=== PATIENT | male | born 1950 | race Hispanic/Latino ===

== ENCOUNTER → 2017-12-30 | Outpatient (CLI) | payer OTHER, MEDICARE ==
[~2017-12-30] MED LIST: ACET-2743 PO; AEC81 PO; ALLO100T PO; ALPR0.255 PO; AMIO400T4 PO; DIGO125T87 PO; FENO48TA4 PO; LISI10TA7 PO; METO100T14 PO; PARO-37 PO; PRAV40TA3 PO; RIVA20TA PO; SAXA5TAB PO
== END ==
LOC: OIH 11:37
PROVIDERS: ATTEND Family Medicine
DX: J02.9 Acute pharyngitis, unspecified (principal)
CPT/HCPCS: 71046

== ENCOUNTER → 2020-04-12 | Outpatient (CLI) | payer OTHER, MEDICARE ==
[~2020-04-12] MED LIST changes: -AMIO400T4 PO; +ATOR40TA71 PO; +CARV12.511 PO; +DIGO125T17 PO; +DIGO125T71 PO; -DIGO125T87 PO; +DRON400T2 PO; -FENO48TA4 PO; +FENO48TA9 PO; +GLIP5TAB11 PO; +LEVO75 PO; +METF-446 PO; +OSEL75 PO; -PRAV40TA3 PO; -RIVA20TA PO; -SAXA5TAB PO; +WARF5TAB PO; +WARF7.5T23 PO
== END | disposition home or self-care (01) ==
LOC: RAH 08:46
PROVIDERS: ATTEND Family Medicine
DX: K76.0 Fatty (change of) liver, not elsewhere classified (principal); I70.0 Atherosclerosis of aorta; N28.1 Cyst of kidney, acquired; R53.1 Weakness
CPT/HCPCS: 71046; 76700

== ENCOUNTER → 2020-06-02 | Outpatient (CLI) | payer OTHER, MEDICARE | END | disposition home or self-care (01) | LOC: RAH 08:39 | PROVIDERS: ATTEND Family Medicine | DX: R63.4 Abnormal weight loss (principal); I70.0 Atherosclerosis of aorta; M47.814 Spondylosis without myelopathy or radiculopathy, thoracic region; Z95.0 Presence of cardiac pacemaker | CPT/HCPCS: 71046 ==

== ENCOUNTER 2021-10-09 08:19 | Emergency (ER) | payer OTHER, MEDICARE ==
[~2021-10-09 08:19] MED LIST changes: -DRON400T2 PO; +DRON400T7 PO; +FENO48TA10 PO; -FENO48TA9 PO; +LISI10TA24 PO; -LISI10TA7 PO
[2021-10-09 08:30] LABS: BASOPHILS % (AUTO) 0.4 % (0.0-5.0); EOSINOPHILS % (AUTO) 0.1 % (0.0-8.0); HEMATOCRIT 45.6 % (42-54); LYMPHOCYTES % (AUTO) 7.1 % (21.0-51.0); MEAN CORPUSCULAR HEMOGLOBIN 28.3 pg (27.0-33.0); MEAN CORPUSCULAR HGB CONC 31.1 g/dL (32.0-36.0); MEAN CORPUSCULAR VOLUME 90.8 fL (79-99); MONOCYTES % (AUTO) 5.8 % (3.0-13.0); NEUTROPHILS % (AUTO) 85.4 % (40.0-77.0); PLATELET COUNT (AUTO) 216 K/uL (130-400); RED BLOOD CELL COUNT(AUTO) 5.02 MIL/uL (4.50-6.20); WHITE BLOOD COUNT (AUTO) 19.1 K/uL (4.8-10.8)
[2021-10-09 08:50] LABS: CREATININE 1.4 mg/dL (0.5-1.5); POTASSIUM 4.9 mmol/L (3.5-5.1)
[2021-10-09 08:52] LABS: INR 1.81 (0.85-1.15); PROTHROMBIN TIME 18.7 SEC (9.6-11.6)
[2021-10-09 08:53] LABS: PARTIAL THROMBOPLASTIN TIME 28.6 SEC (26.3-35.5)
[2021-10-09 08:56] LABS: ALBUMIN 3.9 g/dL (3.5-5.0); BILIRUBIN,TOTAL 2.3 mg/dL (0.2-1.0); DIGOXIN 0.57 ng/mL (0.50-2.00); TOTAL PROTEIN, SERUM 7.7 g/dL (6.0-8.3)
[2021-10-09] MEDS ORDERED: 0.9%NACL 1000ML 1,000 ML IV SCH (09:00)
[2021-10-09] MEDS ORDERED: IOHEXOL-350 75 ML VIAL IV ONE (09:20)
[2021-10-09] MEDS ORDERED: IOHEXOL-350 50ML VIAL IV ONE (09:21)
[2021-10-09 10:30] VITALS: BP 119/73
[2021-10-09] MEDS ORDERED: ASPIRIN 81MG CHEW TAB ONE (10:51)
[2021-10-09] MEDS ORDERED: DIGOXIN 250 MCG/ML 2ML AMP ONE (10:51)
[2021-10-09] MEDS ORDERED: INSULIN HUMULIN R 100 UNIT/ML 3ML ONE (10:52)
[2021-10-09] MEDS ORDERED: DIGOXIN 250 MCG/ML 2ML AMP IV SCH (11:00)
[2021-10-09] MEDS ORDERED: ASPIRIN 81MG CHEW TAB PO SCH (11:00)
[2021-10-09] MEDS ORDERED: INSULIN HUMULIN R 100 UNIT/ML 3ML SQ SCH (11:00)
[2021-10-09 11:48] LABS: APPEARANCE,URINE Clear (CLEAR); BILIRUBIN,URINE Negative (NEGATIVE); COLOR,URINE Yellow (YELLOW); GLUCOSE, URINE (UA) Negative (NEGATIVE); KETONES,URINE Negative (NEGATIVE); LEUKOCYTE ESTERASE ,URINE Negative (NEGATIVE); NITRATE,URINE Negative (NEGATIVE); OCCULT BLOOD,URINE Negative (NEGATIVE); PH,URINE 5.5 (5.0-8.0); PROTEIN,URINE Trace mg/dL (NEGATIVE)
[2021-10-09 12:07] LABS: BACTERIA,URINE Rare /HPF (None Seen); RBC,URINE 0-1 /HPF (0-1); SQUAMOUS EPITHELIAL CELL,UR Rare /HPF (0-2); WBC,URINE 0-1 /HPF (0-1)
== END 2021-10-09 13:14 | disposition critical access hospital (66) ==
LOC: EDH 08:19
DX: I63.9 Cerebral infarction, unspecified (principal); I65.23 Occlusion and stenosis of bilateral carotid arteries; I21.A1 Myocardial infarction type 2; Z20.822 Contact with and (suspected) exposure to COVID-19; I48.91 Unspecified atrial fibrillation; I25.10 Atherosclerotic heart disease of native coronary artery without angina pectoris; E78.5 Hyperlipidemia, unspecified; I11.9 Hypertensive heart disease without heart failure; E11.9 Type 2 diabetes mellitus without complications; E86.1 Hypovolemia; Z79.01 Long term (current) use of anticoagulants; Z79.4 Long term (current) use of insulin; Z79.82 Long term (current) use of aspirin; Z79.899 Other long term (current) drug therapy
CPT/HCPCS: 36415; 70450; 70496; 70498; 71045; 71275; 80053; 80162; 81001; 82948; 84484; 85025; 85610; 85730; 87635; 93005; 96361; 96374; 99291; C9803; J1160; J1815; J7030; Q9967 ×2; 96372

== ENCOUNTER → 2021-11-23 | Outpatient (CLI) | payer OTHER, MEDICARE | END | disposition home or self-care (01) | LOC: RAH 12:22 | PROVIDERS: ATTEND Family Medicine | DX: K63.4 Enteroptosis (principal); I70.0 Atherosclerosis of aorta; M47.815 Spondylosis without myelopathy or radiculopathy, thoracolumbar region; Z95.0 Presence of cardiac pacemaker | CPT/HCPCS: 71046 ==

== ENCOUNTER 2022-04-26 14:14 | Inpatient (IN) | payer OTHER, MEDICARE ==
[2022-04-26] VITALS (25 sets, daily range): BP systolic 79–134; BP diastolic 26–51
[~2022-04-26] VITALS: Ht 172.7 cm; Wt 84.2 kg
[~2022-04-26 14:14] MED LIST changes: -ACET-2743 PO; -AEC81 PO; -ALLO100T PO; -ALPR0.255 PO; +ATOR40TA69 PO; -ATOR40TA71 PO; -CARV12.511 PO; +CLOP75TA32 PO; -DIGO125T17 PO; -DRON400T7 PO; -FENO48TA10 PO; +FURO40TA5 PO; -LEVO75 PO; +LEVO75CA5 PO; +METO-391 PO; -METO100T14 PO; -OSEL75 PO; -PARO-37 PO; +WARF-57 PO; -WARF5TAB PO; -WARF7.5T23 PO
[2022-04-26] MEDS ORDERED: FUROSEMIDE 40MG VIAL ONE (14:19)
[2022-04-26] MEDS ORDERED: FUROSEMIDE 20MG VIAL IV ONE (14:30)
[2022-04-26 14:33] LABS: BASOPHILS % (AUTO) 0.6 % (0.0-5.0); EOSINOPHILS % (AUTO) 1.1 % (0.0-8.0); HEMATOCRIT 48.8 % (42-54); LYMPHOCYTES % (AUTO) 30.6 % (21.0-51.0); MEAN CORPUSCULAR HEMOGLOBIN 29.3 pg (27.0-33.0); MEAN CORPUSCULAR HGB CONC 31.4 g/dL (32.0-36.0); MEAN CORPUSCULAR VOLUME 93.5 fL (79-99); MONOCYTES % (AUTO) 5.7 % (3.0-13.0); NEUTROPHILS % (AUTO) 59.4 % (40.0-77.0); PLATELET COUNT (AUTO) 200 K/uL (130-400); RED BLOOD CELL COUNT(AUTO) 5.22 MIL/uL (4.50-6.20); RED CELL DISTRIBUTION WIDTH 15.8 % (11.0-15.5); WHITE BLOOD COUNT (AUTO) 17.6 K/uL (4.8-10.8)
[2022-04-26] MEDS: ZOSYN 3.375GM +NS 50ML IV SCH ×2 (14:44→22:38)
[2022-04-26 14:47] LABS: CREATININE 1.8 mg/dL (0.5-1.5); POTASSIUM 4.3 mmol/L (3.5-5.1)
[2022-04-26 14:51] LABS: APPEARANCE,URINE Clear (CLEAR); BILIRUBIN,URINE Negative (NEGATIVE); COLOR,URINE Yellow (YELLOW); GLUCOSE, URINE (UA) Negative (NEGATIVE); KETONES,URINE Negative (NEGATIVE); LEUKOCYTE ESTERASE ,URINE Negative (NEGATIVE); NITRATE,URINE Negative (NEGATIVE); OCCULT BLOOD,URINE Negative (NEGATIVE); PH,URINE 6.5 (5.0-8.0); PROTEIN,URINE Negative (NEGATIVE)
[2022-04-26 14:53] LABS: ALBUMIN 3.5 g/dL (3.5-5.0); DIGOXIN 0.83 ng/mL (0.50-2.00); TOTAL PROTEIN, SERUM 7.7 g/dL (6.0-8.3)
[2022-04-26 14:54] LABS: B-TYPE NATRIURETIC PEPTIDE 1040 pg/mL (0-100)
[2022-04-26 15:06] LABS: ABG BASE EXCESS -11.9 mmol/L (-2.0-3.0); ABG HCO3 19.5 mmol/L (21.0-28.0); ABG OXYGEN SATURATION 99.5 % (95.0-99.0); ABG PCO2 68 mmHg (35-48)
[2022-04-26 15:22] LABS: INR 2.74 (0.85-1.15); PROTHROMBIN TIME 28.2 SEC (9.6-11.6)
[2022-04-26 15:32] LABS: ABG BASE EXCESS -5.6 mmol/L (-2.0-3.0); ABG HCO3 21.3 mmol/L (21.0-28.0); ABG OXYGEN SATURATION 94.8 % (95.0-99.0); ABG PCO2 47 mmHg (35-48)
[2022-04-26] MEDS ORDERED: LORA2ORA5 PO (15:32)
[2022-04-26] MEDS ORDERED: ALLO100T PO (15:32)
[2022-04-26] MEDS ORDERED: AEC81 PO (15:32)
[2022-04-26] MEDS ORDERED: FURO40TA5 PO (15:32)
[2022-04-26] MEDS ORDERED: IBUP100O20 PO (15:32)
[2022-04-26] MEDS ORDERED: METF-444 PO (15:32)
[2022-04-26] MEDS ORDERED: METOLAZONE 2.5 MG TABLET PO SCH (16:00)
[2022-04-26] MEDS ORDERED: KCL 20 MEQ ERTAB PO PRN (16:00)
[2022-04-26] MEDS: FUROSEMIDE 40MG VIAL IV SCH ×2 (16:00→23:28)
[2022-04-26] MEDS ORDERED: POTASSIUM CHLORIDE 10MEQ/100ML 100 ML IV PRN (16:00)
[2022-04-26] MEDS ORDERED: WARFARIN SODIUM 7.5 MG TAB PO SCH (16:00)
[2022-04-26] MEDS ORDERED: LIDOCAINE HCL-MPF 1% 2ML VIAL IV PRN (16:00)
[2022-04-26] MEDS: INSULIN HUMULIN R 100 UNIT/ML 3ML SQ SCH ×2 (16:19→21:16)
[2022-04-26] MEDS ORDERED: LACTULOSE 20 GM/30 ML UDCUP PO PRN (16:30)
[2022-04-26] MEDS ORDERED: LABETALOL 20MG SYG IV PRN (16:30)
[2022-04-26] MEDS ORDERED: ACETAMINOPHEN 325 MG TAB PO PRN (16:30)
[2022-04-26] MEDS ORDERED: ONDANSETRON 4MG INJ IVP PRN (16:30)
[2022-04-26] MEDS ORDERED: HYDRALAZINE 20MG/ML VIAL IV PRN (16:30)
[2022-04-26] MEDS: DOBUTAMINE 250MG/D5 250ML 250 ML IV SCH ×3 (16:32→23:37)
[2022-04-26] MEDS: CEFTRIAXONE 1G VIAL IVP SCH (16:51)
[2022-04-26] MEDS: IPRATROPIUM 0.5 MG/2.5 ML INH IH SCH ×2 (19:08→23:24)
[2022-04-26] MEDS: ATORVASTATIN 40 MG TABLET PO SCH (21:14)
[2022-04-27] VITALS (105 sets, daily range): BP systolic 78–188; BP diastolic 15–73
[2022-04-27] MEDS: DOBUTAMINE 250MG/D5 250ML 250 ML IV SCH ×3 (05:17→22:20)
[2022-04-27] MEDS: ZOSYN 3.375GM +NS 50ML IV SCH (06:08)
[2022-04-27] MEDS: LEVOTHYROXINE 75 MCG TABLET PO SCH (06:08)
[2022-04-27] MEDS: INSULIN HUMULIN R 100 UNIT/ML 3ML SQ SCH ×4 (06:09→20:12)
[2022-04-27] MEDS: IPRATROPIUM 0.5 MG/2.5 ML INH IH SCH ×4 (06:19→23:39)
[2022-04-27 06:30] LABS: BASOPHILS % (AUTO) 0.1 % (0.0-5.0); HEMATOCRIT 39.2 % (42-54); MEAN CORPUSCULAR HEMOGLOBIN 29.5 pg (27.0-33.0); MEAN CORPUSCULAR HGB CONC 32.9 g/dL (32.0-36.0); MEAN CORPUSCULAR VOLUME 89.7 fL (79-99); MONOCYTES % (AUTO) 6.3 % (3.0-13.0); NEUTROPHILS % (AUTO) 88.1 % (40.0-77.0); PLATELET COUNT (AUTO) 148 K/uL (130-400); RED BLOOD CELL COUNT(AUTO) 4.37 MIL/uL (4.50-6.20); RED CELL DISTRIBUTION WIDTH 15.9 % (11.0-15.5); WHITE BLOOD COUNT (AUTO) 18.9 K/uL (4.8-10.8)
[2022-04-27 06:55] LABS: CREATININE 1.9 mg/dL (0.5-1.5); MAGNESIUM 1.4 mg/dL (1.80-2.40); PHOSPHORUS 4.1 mg/dL (2.5-4.9); POTASSIUM 4.3 mmol/L (3.5-5.1); THYROID STIMULATING HORMONE 0.52 uIU/mL (0.36-3.74)
[2022-04-27 07:15] LABS: B-TYPE NATRIURETIC PEPTIDE 408 pg/mL (0-100)
[2022-04-27] MEDS ORDERED: MAGNESIUM 2GM PREMIX 50ML 50 ML IV PRN (08:00)
[2022-04-27] MEDS: PANTOPRAZOLE 40 MG TAB DR PO SCH (08:17)
[2022-04-27] MEDS: FUROSEMIDE 40MG VIAL IV SCH ×2 (08:17→16:12)
[2022-04-27] MEDS: METOPROLOL SUCCINATE 50 MG TAB.SR.24H PO SCH (09:00)
[2022-04-27] MEDS ORDERED: LISINOPRIL 10 MG TABLET PO SCH (09:00)
[2022-04-27] MEDS ORDERED: DIGOXIN 125 MCG TABLET PO SCH (16:00)
[2022-04-27] MEDS: LIDOCAINE 2G/250ML 250 ML IV SCH (16:02)
[2022-04-27] MEDS: WARFARIN SODIUM 5 MG TAB PO SCH (16:14)
[2022-04-27] MEDS: CEFTRIAXONE 1G VIAL IVP SCH (16:23)
[2022-04-27] MEDS ORDERED: LIDOCAINE HCL/PF 2% IV FOR VENTRICULAR ARRHYTHMIA IV ONE (17:00)
[2022-04-27] MEDS: ATORVASTATIN 40 MG TABLET PO SCH (20:20)
[2022-04-27] MEDS: SACUBITRIL/VALSARTAN 1 EACH TABLET PO SCH (20:20)
[2022-04-28] VITALS (93 sets, daily range): BP systolic 72–135; BP diastolic 23–75
[2022-04-28] MEDS: FUROSEMIDE 40MG VIAL IV SCH ×3 (00:06→15:14)
[2022-04-28] MEDS: DOBUTAMINE 250MG/D5 250ML 250 ML IV SCH ×3 (04:40→17:31)
[2022-04-28] MEDS: LEVOTHYROXINE 75 MCG TABLET PO SCH (05:37)
[2022-04-28] MEDS: INSULIN HUMULIN R 100 UNIT/ML 3ML SQ SCH ×4 (05:39→19:54)
[2022-04-28 05:50] LABS: CREATININE 1.5 mg/dL (0.5-1.5); POTASSIUM 3.6 mmol/L (3.5-5.1)
[2022-04-28] MEDS: LIDOCAINE 2G/250ML 250 ML IV SCH (06:20)
[2022-04-28] MEDS: IPRATROPIUM 0.5 MG/2.5 ML INH IH SCH ×4 (06:33→23:02)
[2022-04-28] MEDS: METOPROLOL SUCCINATE 50 MG TAB.SR.24H PO SCH (09:00)
[2022-04-28] MEDS: SACUBITRIL/VALSARTAN 1 EACH TABLET PO SCH (09:00)
[2022-04-28] MEDS: POTASSIUM CHLORIDE 10% ELIXIR 20 MEQ/15 ML UDCUP PO PRN ×2 (09:03→12:04)
[2022-04-28] MEDS: PANTOPRAZOLE 40 MG TAB DR PO SCH (09:03)
[2022-04-28] MEDS: CEFTRIAXONE 1G VIAL IVP SCH (15:14)
[2022-04-28] MEDS: WARFARIN SODIUM 5 MG TAB PO SCH (15:14)
[2022-04-28] MEDS ORDERED: CLOPIDOGREL 75MG TAB PO ONE (16:00)
[2022-04-28] MEDS ORDERED: ASPIRIN 81MG CHEW TAB PO ONE (16:00)
[2022-04-28] MEDS: ATORVASTATIN 40 MG TABLET PO SCH (19:56)
[2022-04-29] VITALS (49 sets, daily range): BP systolic 66–139; BP diastolic 30–82
[2022-04-29] MEDS: FUROSEMIDE 40MG VIAL IV SCH (01:18)
[2022-04-29] MEDS: DOBUTAMINE 250MG/D5 250ML 250 ML IV SCH ×3 (01:18→09:10)
[2022-04-29] MEDS ORDERED: MORPHINE 4 MG SYG ONE (01:51)
[2022-04-29] MEDS ORDERED: AMIODARONE 150MG VIAL ONE ×2 (02:13→02:35)
[2022-04-29] MEDS ORDERED: DEXTROSE 5%-WATER 500 ML IV ONE (02:17)
[2022-04-29 02:30] LABS: BASOPHILS % (AUTO) 0.3 % (0.0-5.0); EOSINOPHILS % (AUTO) 1.2 % (0.0-8.0); HEMATOCRIT 39.1 % (42-54); LYMPHOCYTES % (AUTO) 14.5 % (21.0-51.0); MEAN CORPUSCULAR HEMOGLOBIN 29.2 pg (27.0-33.0); MEAN CORPUSCULAR HGB CONC 32.7 g/dL (32.0-36.0); MEAN CORPUSCULAR VOLUME 89.1 fL (79-99); MONOCYTES % (AUTO) 8.5 % (3.0-13.0); PLATELET COUNT (AUTO) 150 K/uL (130-400); RED BLOOD CELL COUNT(AUTO) 4.39 MIL/uL (4.50-6.20); RED CELL DISTRIBUTION WIDTH 15.9 % (11.0-15.5); WHITE BLOOD COUNT (AUTO) 14.4 K/uL (4.8-10.8)
[2022-04-29] MEDS ORDERED: AMIODARONE 150MG VIAL 150 MG in DEXTROSE 5%-WATER 100 ML IV SCH (02:30)
[2022-04-29] MEDS ORDERED: AMIODARONE 900MG VIAL 540 MG in DEXTROSE 5%-WATER 300 ML IV SCH (02:30)
[2022-04-29] MEDS ORDERED: PHENYLEPHRINE HCL 100 MG in 0.9% NACL 250ML 240 ML IV SCH (02:30)
[2022-04-29 02:38] LABS: CREATININE 1.6 mg/dL (0.5-1.5)
[2022-04-29 02:43] LABS: ALBUMIN 2.9 g/dL (3.5-5.0); MAGNESIUM 1.6 mg/dL (1.80-2.40); PHOSPHORUS 3.6 mg/dL (2.5-4.9); TOTAL PROTEIN, SERUM 6.6 g/dL (6.0-8.3)
[2022-04-29] MEDS ORDERED: MAGNESIUM 2GM PREMIX 50ML 50 ML IV SCH (03:00)
[2022-04-29] MEDS ORDERED: PHENYLEPHRINE HCL 100 MG in 0.9% NACL 250ML 250 ML IV SCH (04:00)
[2022-04-29 05:00] LABS: BASOPHILS % (AUTO) 0.3 % (0.0-5.0); EOSINOPHILS % (AUTO) 0.2 % (0.0-8.0); HEMATOCRIT 38.6 % (42-54); LYMPHOCYTES % (AUTO) 3.4 % (21.0-51.0); MEAN CORPUSCULAR HEMOGLOBIN 29.2 pg (27.0-33.0); MEAN CORPUSCULAR HGB CONC 32.6 g/dL (32.0-36.0); MEAN CORPUSCULAR VOLUME 89.4 fL (79-99); MONOCYTES % (AUTO) 5.5 % (3.0-13.0); NEUTROPHILS % (AUTO) 89.7 % (40.0-77.0); PLATELET COUNT (AUTO) 157 K/uL (130-400); RED BLOOD CELL COUNT(AUTO) 4.32 MIL/uL (4.50-6.20); RED CELL DISTRIBUTION WIDTH 15.8 % (11.0-15.5); WHITE BLOOD COUNT (AUTO) 17.2 K/uL (4.8-10.8)
[2022-04-29 05:13] LABS: CREATININE 1.8 mg/dL (0.5-1.5); MAGNESIUM 1.5 mg/dL (1.80-2.40); PHOSPHORUS 3.7 mg/dL (2.5-4.9); POTASSIUM 3.7 mmol/L (3.5-5.1)
[2022-04-29] MEDS: LEVOTHYROXINE 75 MCG TABLET PO SCH (06:30)
[2022-04-29] MEDS: IPRATROPIUM 0.5 MG/2.5 ML INH IH SCH (06:51)
[2022-04-29] MEDS: INSULIN HUMULIN R 100 UNIT/ML 3ML SQ SCH ×2 (07:07→11:30)
[2022-04-29] MEDS ORDERED: LORAZEPAM 1 MG TABLET PO PRN (08:00)
[2022-04-29] MEDS ORDERED: ASPIRIN 81MG CHEW TAB PO SCH (09:00)
[2022-04-29] MEDS ORDERED: CLOPIDOGREL 75MG TAB PO SCH (09:00)
[2022-04-29] MEDS: PANTOPRAZOLE 40 MG TAB DR PO SCH (09:00)
[2022-04-29] MEDS ORDERED: FUROSEMIDE 40MG VIAL IV SCH (09:30)
[2022-04-29 09:43] LABS: PARTIAL THROMBOPLASTIN TIME 51.8 SEC (26.3-35.5)
[2022-04-29 09:50] LABS: INR 5.67 (0.85-1.15)
[2022-04-29] MEDS ORDERED: MORPHINE 2 MG SYG IVP PRN (10:00)
[2022-04-29] MEDS ORDERED: LORAZEPAM 2 MG/ML 1 ML VIAL IM PRN (10:30)
[2022-04-29] MEDS ORDERED: LORAZEPAM 2 MG/ML 1 ML VIAL IVP PRN (11:30)
[2022-04-29] MEDS: WARFARIN SODIUM 5 MG TAB PO SCH (16:00)
[2022-04-29] MEDS: CEFTRIAXONE 1G VIAL IVP SCH (16:01)
[2022-04-29] MEDS ORDERED: ALPRAZOLAM 1 MG TAB PO SCH (21:00)
[2022-04-30 05:25] LABS: CREATININE 3.1 mg/dL (0.5-1.5); POTASSIUM 4.8 mmol/L (3.5-5.1)
[2022-04-30 08:00] VITALS: BP 81/40
[2022-04-30] MEDS ORDERED: LORAZEPAM 1 MG TABLET PO ONE (08:30)
[2022-04-30] MEDS ORDERED: LORAZEPAM 1 MG TABLET PO PRN (08:30)
[2022-04-30 11:10] VITALS: BP 91/44
[2022-04-30 16:05] VITALS: BP 97/46
[2022-04-30 20:00] VITALS: BP 110/54
== END 2022-04-30 21:33 ==
LOC: EDH 14:14 → OBSVTOIN 16:04 → EDHIP 16:04 → 2CH 18:22 → 4DH 04-29 22:18
PROVIDERS: ADMIT Internal Medicine Critical Care Medicine; ATTEND Internal Medicine Critical Care Medicine
PROC: 5A09357 Assistance with Respiratory Ventilation, Less than 24 Consecutive Hours, Continuous Positive Airway Pressure (ICD-10-PCS; principal; 2022-04-26)
PROC: 5A09357 Assistance with Respiratory Ventilation, Less than 24 Consecutive Hours, Continuous Positive Airway Pressure (ICD-10-PCS; 2022-04-27)
PROC: 5A09357 Assistance with Respiratory Ventilation, Less than 24 Consecutive Hours, Continuous Positive Airway Pressure (ICD-10-PCS; 2022-04-28)
DX: I21.4 Non-ST elevation (NSTEMI) myocardial infarction (principal); I50.43 Acute on chronic combined systolic (congestive) and diastolic (congestive) heart failure; J96.01 Acute respiratory failure with hypoxia; I13.0 Hypertensive heart and chronic kidney disease with heart failure and stage 1 through stage 4 chronic kidney disease, or unspecified chronic kidney disease; N18.4 Chronic kidney disease, stage 4 (severe); E87.2 Acidosis; G93.40 Encephalopathy, unspecified; I47.2 Ventricular tachycardia; R57.0 Cardiogenic shock; I25.5 Ischemic cardiomyopathy; Z91.19 Patient's noncompliance with other medical treatment and regimen; I51.3 Intracardiac thrombosis, not elsewhere classified; D72.829 Elevated white blood cell count, unspecified; E03.9 Hypothyroidism, unspecified; E11.22 Type 2 diabetes mellitus with diabetic chronic kidney disease; E11.65 Type 2 diabetes mellitus with hyperglycemia; Z20.822 Contact with and (suspected) exposure to COVID-19; E78.5 Hyperlipidemia, unspecified; Z95.1 Presence of aortocoronary bypass graft; I25.10 Atherosclerotic heart disease of native coronary artery without angina pectoris; I25.2 Old myocardial infarction; Z95.810 Presence of automatic (implantable) cardiac defibrillator; Z79.01 Long term (current) use of anticoagulants; Z86.73 Personal history of transient ischemic attack (TIA), and cerebral infarction without residual deficits; Z87.891 Personal history of nicotine dependence; Z95.5 Presence of coronary angioplasty implant and graft; E78.00 Pure hypercholesterolemia, unspecified; Z91.14 Patient's other noncompliance with medication regimen; Z51.5 Encounter for palliative care; Z66 Do not resuscitate; E66.9 Obesity, unspecified; I48.0 Paroxysmal atrial fibrillation; Z68.28 Body mass index [BMI] 28.0-28.9, adult
CPT/HCPCS: 36415; 36600; 71045; 80048; 80053; 80162; 81003; 82010; 82435; 82550; 82803; 82947; 82948; 83605; 83735; 83874; 83880; 84100; 84132; 84295; 84443; 84484; 85018; 85025; 85610; 85730; 87040; 87635; 93005; 94640; 94660; 94664; 99291; C9803; G0378; J0282; J0696; J1250; J1815; J1940; J2001; J2060; J2270; J2405; J2543; J3475; J3490; J7060